=== PATIENT | female | born 1985 | race Hispanic/Latino ===

== ENCOUNTER 2018-08-25 15:27 | Emergency (ER) | payer SELFPAY ==
[2018-08-25] MEDS ORDERED: Dexamethasone 10 MG/ML VIAL ONE (16:14)
[2018-08-25] MEDS ORDERED: Bicillin LA 1.2 MILLION UNITS/2 ML SYRINGE ONE (16:14)
== END 2018-08-25 16:38 | disposition home or self-care (01) ==
LOC: ERS 15:27
DX: J02.0 Streptococcal pharyngitis (principal)
CPT/HCPCS: 87804; 96372; J0561; J1100

== ENCOUNTER 2020-03-14 19:51 | Emergency (ER) | payer OTHER, SELFPAY ==
[2020-03-15 11:50] LABS: SARS-CoV-2 MS2 Positive; SARS-CoV-2 N Gene Negative; SARS-CoV-2 S Gene Negative; SARS-CoV-2 orf1ab Negative
== END 2020-03-14 20:45 | disposition home or self-care (01) ==
LOC: ERS 19:51
DX: Z20.828 Contact with and (suspected) exposure to other viral communicable diseases (principal)
CPT/HCPCS: 87635; 99283; U0003

== ENCOUNTER 2021-10-13 05:59 | Emergency (ER) | payer OTHER ==
[2021-10-13 12:24] LABS: SARS-CoV-2 PCR by NAA DETECTED (NotDetected)
== END 2021-10-13 06:51 | disposition home or self-care (01) ==
LOC: ERS 05:59
DX: U07.1 COVID-19 (principal)
CPT/HCPCS: 99283; U0003; U0005

== ENCOUNTER 2023-07-13 09:50 | Observation (INO) | payer SELFPAY ==
[2023-07-11 11:41] VITALS: BMI 26.9
[2023-07-13] MEDS ORDERED: Lidocaine 1% (PF) 30 ML VIAL ONE (12:18)
[2023-07-13] MEDS ORDERED: EPINEPHrine 1 MG/ML AMP ONE (12:18)
[2023-07-13] MEDS ORDERED: fentaNYL PF 100 MCG/2 ML SYRINGE ONE (12:55)
[2023-07-13] MEDS ORDERED: Midazolam HCl 2 mg/2 ml Vial ONE ×2 (13:04→15:40)
[2023-07-13] MEDS ORDERED: Dexamethasone 20 MG/5 ML VIAL ONE (13:15)
[2023-07-13] MEDS ORDERED: ePHEDrine Sulfate 50 MG/10 ML VIAL ONE (13:15)
[2023-07-13] MEDS ORDERED: Ondansetron PF 4 MG/2 ML Vial ONE (13:15)
[2023-07-13] MEDS ORDERED: PHENYLEPHRINE-NS 100 MCG/ML 10 ML SYRINGE ONE (13:15)
[2023-07-13] MEDS ORDERED: NEOSTIGMINE 3 MG/3 ML SYR 3 MG/3 ML SYRINGE ONE (13:15)
[2023-07-13] MEDS ORDERED: Lidocaine 1% PF 5 ML VIAL ONE (13:15)
[2023-07-13] MEDS ORDERED: Rocuronium Bromide 10 MG/ML (10ML VIAL) ONE (13:15)
[2023-07-13] MEDS ORDERED: Glycopyrrolate 0.2 MG/ML 5 ML SYRINGE ONE (13:15)
[2023-07-13] MEDS ORDERED: PROPOFOL 200 MG/20 ML VIAL ONE (13:15)
[2023-07-13] MEDS ORDERED: fentaNYL 50 mcg/mL 1 mL Vial ONE ×3 (15:26→16:18)
[2023-07-13] MEDS ORDERED: Oxymetazoline HCl 0.05% (30 ML BOT) ONE (15:32)
[2023-07-13] MEDS ORDERED: Dexamethasone 4 mg/ml Vial ONE (15:46)
[2023-07-13] MEDS ORDERED: Ondansetron PF 4 MG/2 ML Vial IVP PRN (15:52)
[2023-07-13] MEDS ORDERED: Morphine 2 MG/ML VIAL SLOW IVP PRN (16:10)
[2023-07-13] MEDS ORDERED: traMADol HCl 50 MG TAB PO PRN (16:10)
[2023-07-13] MEDS: D5 1/2 NS w/20 mEq KCL 1,000 ML IV SCH (17:56)
[2023-07-13] MEDS: Morphine 2 MG/ML VIAL SLOW IVP PRN (21:31)
[2023-07-14] MEDS: Morphine 2 MG/ML VIAL SLOW IVP PRN ×2 (03:42→07:55)
[2023-07-14] MEDS: D5 1/2 NS w/20 mEq KCL 1,000 ML IV SCH (03:44)
[2023-07-14 05:52] LABS: Calcium 8.5 mg/dL (7.8-10.44)
[2023-07-14 08:09] VITALS: BP 101/57; TEMP 98.6
[2023-07-16] MEDS ORDERED: FLU VACC QS2023-24(6MOS UP)/PF 60 MCG/0.5 ML SYRINGE IM ONE (18:15)
== END 2023-07-14 09:30 | disposition home or self-care (01) ==
LOC: SDC 09:50 → SURG A 15:52
PROVIDERS: ADMIT Specialist; ATTEND Specialist
PROC: 0GTH0ZZ Resection of Right Thyroid Gland Lobe, Open Approach (ICD-10-PCS; principal; 2023-07-13)
DX: C73 Malignant neoplasm of thyroid gland (principal); E04.1 Nontoxic single thyroid nodule; E04.9 Nontoxic goiter, unspecified
CPT/HCPCS: 36415; 82310; 88307; C1889; J0171; J1100; J2001; J2250; J2272; J2405; J2704; J3010; J3480

== ENCOUNTER 2023-09-06 13:39 | Outpatient (CLI) | payer OTHER ==
[2023-09-06 13:47] LABS: BHCG - Serum Negative (NEGATIVE); Pregs Control Background? CLEAR/WHITE (CLR/WHITE); Pregs Control Bar Appear? YES (CONTROL BAR)
== END 2023-09-06 13:40 | disposition home or self-care (01) ==
LOC: NM 13:39
PROVIDERS: ATTEND Specialist
DX: C73 Malignant neoplasm of thyroid gland (principal)
CPT/HCPCS: 36415; 79005; 84703; A9517

== ENCOUNTER 2023-09-15 14:03 | Outpatient (CLI) | payer OTHER | END 2023-09-15 14:04 | disposition home or self-care (01) | LOC: NM 14:03 | PROVIDERS: ATTEND Specialist | DX: C73 Malignant neoplasm of thyroid gland (principal); Z98.890 Other specified postprocedural states | CPT/HCPCS: 78018 ==

== ENCOUNTER 2024-04-02 15:14 | Outpatient (CLI) | payer OTHER, SELFPAY | END 2024-04-02 15:15 | disposition home or self-care (01) | LOC: BICULT 15:14 | PROVIDERS: ATTEND Physician Assistant | DX: C73 Malignant neoplasm of thyroid gland (principal) | CPT/HCPCS: 76536 ==